=== PATIENT | female | born 1990 | race Two or more races ===

== ENCOUNTER 2018-06-04 09:59 | Emergency (ER) | payer OTHER ==
[2018-06-04] MEDS: METHYLPREDNISOLONE 125 MG INJ IV (10:32)
[2018-06-04] MEDS: FAMOTIDINE 20 MG INJ IV (11:06)
== END 2018-06-04 12:33 | disposition home or self-care (01) ==
LOC: FTE 09:59
DX: T78.1XXA Other adverse food reactions, not elsewhere classified, initial encounter (principal); L29.9 Pruritus, unspecified
CPT/HCPCS: 96374; 96375; 99284-25